=== PATIENT | male | born 1960 | race Caucasian/White ===

== ENCOUNTER 2021-09-18 01:18 | Inpatient (IN) ==
[2021-09-18 01:54] LABS: Basophils # 0.1 10*3/uL (0.0-0.2); Basophils % 0.5 % (0.0-0.8); Eosinophils # 0.1 10*3/uL (0.0-0.87); Eosinophils % 0.9 % (0.00-10.9); Hematocrit 35.5 VOL% (42.0-52.0); Hemoglobin 11.4 GM/DL (14.0-18.0); Immature Granulocytes % 0.2 %; Immature Granulocytes Absolute 0.02 #; Lymphocytes # 1.8 10*3/uL (1.4-4.0); Lymphocytes % 18.4 % (21.2-54.2); Mean Corpuscular HGB Conc 32.1 GM/DL (32-36); Mean Corpuscular Volume 94.7 FL (87-102); Mean Platelet Volume 10.7 FL (9.6-12.0); Monocytes % 9.4 % (1.7-12.7); Neutrophils % 70.6 % (38.7-73.9); Platelet Count 231 T/CUMM (130-400); Red Blood Count 3.75 MC/CUMM (3.8-5.5); Red Cell Distribution Width 13.7 % (9.3-17.3); White Blood Count 9.7 T/CUMM (4-12)
[2021-09-18 03:09] LABS: Alanine Aminotransferase 38 U/L (16-61); Albumin 3.3 G/DL (3.4-5.0); Alkaline Phosphatase 57 U/L (45-117); Aspartate Amino Transferase 36 U/L (0-37); Bilirubin,Total < 0.39 MG/DL (0.20-1.00); Blood Urea Nitrogen 33 MG/DL (7-18); Calcium 8.1 MG/DL (8.5-10.1); Carbon Dioxide 24 MMOL/L (21-32); Estimated Glom Filtration Rate 95 ML/MIN; Glucose 86 MG/DL (74-106); Osmolality,Calculated 286.3 MOS/KG (273-304); Potassium 3.9 MMOL/L (3.5-5.1); Sodium 141 MMOL/L (136-145); Total Protein 5.8 G/DL (6.4-8.2)
[2021-09-18] MEDS ORDERED: DILTIAZEM 50 MG/10 ML VIAL IV STA (03:12)
[2021-09-18] MEDS ORDERED: hydrALAZINE 20 MG/1 ML VIAL IV PRN (04:18)
[2021-09-18] MEDS ORDERED: ACETAMINOPHEN 325 MG TABLET PO PRN (04:18)
[2021-09-18] MEDS ORDERED: ONDANSETRON 4 MG/2 ML VIAL IV PRN (04:18)
[2021-09-18] MEDS ORDERED: GLUCAGON 1 MG VIAL IM PRN (04:18)
[2021-09-18] MEDS ORDERED: DEXTROSE 10% 250 ML BAG IV PRN (04:34)
[2021-09-18] MEDS ORDERED: METOPROLOL TARTRATE 5 MG/5 ML VIAL IV STA (04:46)
[2021-09-18 04:52] LABS: Risk Ratio 2.43; Thyroid Stimulating Hormone 0.936 uIU/ml (0.358-3.74)
[2021-09-18 05:19] LABS: PT Patient Result 10.7 SECS (10.5-12.0)
[2021-09-18] MEDS ORDERED: FUROSEMIDE 40 MG/4 ML VIAL IV ONE (05:44)
[2021-09-18] MEDS ORDERED: VERAPAMIL SR 180 MG TABLET PO SCH (09:00)
[2021-09-18] MEDS ORDERED: METOPROLOL TARTRATE 25 MG TABLET PO SCH (09:00)
[2021-09-18] MEDS ORDERED: LOSARTAN 50 MG TABLET PO SCH (09:00)
[2021-09-18] MEDS: hydrALAZINE 25 MG TABLET PO SCH ×3 (09:19→21:27)
[2021-09-18] MEDS: COENZYME Q10 100 MG CAPSULE PO SCH (09:19)
[2021-09-18] MEDS: THIAMINE 100 MG TABLET PO SCH (09:19)
[2021-09-18] MEDS: BACLOFEN 10 MG TABLET PO SCH (09:19)
[2021-09-18] MEDS: OMEGA 3 ACID ETHYL ESTERS 1 GM CAPSULE PO SCH ×2 (09:19→21:22)
[2021-09-18] MEDS: PANTOPRAZOLE 40 MG TABLET PO SCH (09:19)
[2021-09-18] MEDS: CHOLECALCIFEROL 1,000 UNIT TABLET PO SCH (09:20)
[2021-09-18] MEDS: hydrOXYzine HCL 25 MG TABLET PO SCH (09:20)
[2021-09-18] MEDS: MAGNESIUM OXIDE 400 MG TABLET PO SCH (09:20)
[2021-09-18] MEDS: NAPROXEN 500 MG TABLET PO SCH ×2 (09:20→21:22)
[2021-09-18] MEDS: APIXABAN 5 MG TABLET PO SCH ×2 (09:20→21:22)
[2021-09-18] MEDS: ZINC GLUCONATE 50 MG TABLET PO SCH (09:20)
[2021-09-18] MEDS: CETIRIZINE 10 MG TABLET PO SCH (09:22)
[2021-09-18] MEDS: FLUTICASONE/SALMETEROL 500-50 DISKUS 14 DOSE INH SCH (10:04)
[2021-09-18] MEDS: GABAPENTIN 300 MG PO SCH (10:04)
[2021-09-18] MEDS ORDERED: SODIUM CHLORIDE 0.9% 1,000 ML IV ONE (17:01)
[2021-09-18] MEDS ORDERED: ATROPINE 1 MG/10 ML SYRINGE IV ONE (17:39)
[2021-09-18] MEDS ORDERED: ATROPINE 1 MG/10 ML SYRINGE ONE (17:39)
[2021-09-18] MEDS ORDERED: EPINEPHrine 1 MG/10 ML SYRINGE ONE (17:43)
[2021-09-18] MEDS ORDERED: EPINEPHrine 1 MG/10 ML SYRINGE IV ONE (17:54)
[2021-09-18] MEDS: SODIUM CHLORIDE 0.9% 1,000 ML IV SCH (17:55)
[2021-09-18] MEDS ORDERED: SOTALOL 80 MG TABLET PO SCH (21:00)
[2021-09-18] MEDS ORDERED: METOPROLOL TARTRATE 50 MG TABLET PO SCH (21:00)
[2021-09-18] MEDS: ASCORBIC ACID 500 MG TABLET PO SCH (21:22)
[2021-09-18] MEDS: SOTALOL 80 MG TABLET PO SCH (21:27)
[2021-09-18] MEDS: VERAPAMIL SR 180 MG TABLET PO SCH (21:27)
[2021-09-18] MEDS: LOSARTAN 50 MG TABLET PO SCH (21:27)
[2021-09-18 21:52] LABS: Bacteria,Urine Occasional /HPF (Few); Hyaline Casts,Urine 16 /LPF (0-3); Mucus,Urine Many /LPF (Occasional); RBC,Urine 1 /HPF (0-4); Squamous Epithelial Cell,Urine Occasional /HPF (0-10)
[2021-09-18 21:53] LABS: Bilirubin,Urine Small mg/dL (Negative); Glucose,Urine (UA) Negative (Negative); Ketones,Urine 15 mg/dL (Negative); Nitrite,Urine Negative (Negative); Protein,Urine 100 mg/dL (Negative); Urine Appearance Clear (Clear); Urine Color Yellow (Yellow); Urine Specific Gravity > 1.030 (1.001-1.035); Urine pH 5.5 (4.5-8.0)
[2021-09-18 21:54] LABS: Blood, Urine Negative (Negative); Urine Urobilinogen 0.2 eU/dL (<2.0)
[2021-09-19] MEDS: SODIUM CHLORIDE 0.9% 1,000 ML IV SCH ×5 (01:34→16:13)
[2021-09-19 05:22] LABS: Basophils % 0.4 % (0.0-0.8); Eosinophils # 0.1 10*3/uL (0.0-0.87); Eosinophils % 1.1 % (0.00-10.9); Hemoglobin 10.3 GM/DL (14.0-18.0); Immature Granulocytes % 0.5 %; Immature Granulocytes Absolute 0.04 #; Lymphocytes # 1.4 10*3/uL (1.4-4.0); Lymphocytes % 16.7 % (21.2-54.2); Mean Corpuscular HGB Conc 32.2 GM/DL (32-36); Mean Corpuscular Volume 95.2 FL (87-102); Mean Platelet Volume 10.9 FL (9.6-12.0); Monocytes % 7.9 % (1.7-12.7); Neutrophils % 73.4 % (38.7-73.9); Platelet Count 168 T/CUMM (130-400); Red Blood Count 3.36 MC/CUMM (3.8-5.5); Red Cell Distribution Width 14.1 % (9.3-17.3); White Blood Count 8.2 T/CUMM (4-12)
[2021-09-19 05:39] LABS: Calcium 7.9 MG/DL (8.5-10.1); Osmolality,Calculated 291.1 MOS/KG (273-304); Potassium 4.5 MMOL/L (3.5-5.1)
[2021-09-19] MEDS ORDERED: ceFAZolin 1,000 MG VIAL IRRIG ONE (08:22)
[2021-09-19] MEDS: FLUTICASONE/SALMETEROL 500-50 DISKUS 14 DOSE INH SCH (08:40)
[2021-09-19] MEDS: hydrOXYzine HCL 25 MG TABLET PO SCH (09:18)
[2021-09-19] MEDS: LOSARTAN 50 MG TABLET PO SCH (09:18)
[2021-09-19] MEDS: PANTOPRAZOLE 40 MG TABLET PO SCH (09:18)
[2021-09-19] MEDS: hydrALAZINE 25 MG TABLET PO SCH ×3 (09:18→21:03)
[2021-09-19] MEDS: COENZYME Q10 100 MG CAPSULE PO SCH (10:48)
[2021-09-19] MEDS: GABAPENTIN 300 MG PO SCH (10:48)
[2021-09-19] MEDS: CHOLECALCIFEROL 1,000 UNIT TABLET PO SCH (10:49)
[2021-09-19] MEDS: ASCORBIC ACID 500 MG TABLET PO SCH ×2 (10:49→21:03)
[2021-09-19] MEDS: NAPROXEN 500 MG TABLET PO SCH ×2 (10:49→21:02)
[2021-09-19] MEDS: THIAMINE 100 MG TABLET PO SCH (10:49)
[2021-09-19] MEDS: MAGNESIUM OXIDE 400 MG TABLET PO SCH (10:49)
[2021-09-19] MEDS: OMEGA 3 ACID ETHYL ESTERS 1 GM CAPSULE PO SCH ×2 (10:49→21:03)
[2021-09-19] MEDS: BACLOFEN 10 MG TABLET PO SCH (10:49)
[2021-09-19] MEDS: CETIRIZINE 10 MG TABLET PO SCH (10:50)
[2021-09-19] MEDS: ZINC GLUCONATE 50 MG TABLET PO SCH (10:50)
[2021-09-19] MEDS ORDERED: DIAZEPAM 5 MG TABLET PO ONE (15:00)
[2021-09-19] MEDS ORDERED: diphenhydrAMINE CAP 25 MG CAPSULE PO ONE (15:00)
[2021-09-19] MEDS ORDERED: BISACODYL 5 MG TABLET ONE (15:06)
[2021-09-19] MEDS ORDERED: MIDAZOLAM 2 MG/2 ML VIAL ONE ×3 (16:46→17:44)
[2021-09-19] MEDS ORDERED: HEPARIN/NACL 0.9% 2 UNITS/ML 1,000 UNIT/500 ML BAG IV ONE (16:46)
[2021-09-19] MEDS ORDERED: fentaNYL 100 MCG/2 ML VIAL ONE (16:46)
[2021-09-19] MEDS ORDERED: HYDROmorphone 1 MG/1 ML SYRINGE ONE (17:02)
[2021-09-19] MEDS ORDERED: ceFAZolin 1,000 MG VIAL ONE ×2 (17:04→17:05)
[2021-09-19] MEDS ORDERED: diphenhydrAMINE 50 MG/1 ML VIAL ONE (17:09)
[2021-09-19] MEDS ORDERED: TISSUE ADHESIVE 1 EACH APPLICATOR TOP ONE (17:14)
[2021-09-19] MEDS ORDERED: LIDOCAINE 1% 20 ML VIAL ONE (17:45)
[2021-09-19] MEDS: SOTALOL 80 MG TABLET PO SCH (21:03)
[2021-09-20 04:59] LABS: Basophils % 0.3 % (0.0-0.8); Eosinophils # 0.1 10*3/uL (0.0-0.87); Eosinophils % 1.2 % (0.00-10.9); Hemoglobin 10.4 GM/DL (14.0-18.0); Immature Granulocytes % 0.4 %; Immature Granulocytes Absolute 0.03 #; Lymphocytes # 1.4 10*3/uL (1.4-4.0); Lymphocytes % 18.9 % (21.2-54.2); Mean Corpuscular HGB Conc 32.5 GM/DL (32-36); Mean Corpuscular Volume 94.1 FL (87-102); Mean Platelet Volume 10.3 FL (9.6-12.0); Monocytes % 9.8 % (1.7-12.7); Neutrophils % 69.4 % (38.7-73.9); Platelet Count 165 T/CUMM (130-400); Red Cell Distribution Width 13.7 % (9.3-17.3); White Blood Count 7.2 T/CUMM (4-12)
[2021-09-20 05:17] LABS: Potassium 4.2 MMOL/L (3.5-5.1)
[2021-09-20] MEDS: VERAPAMIL SR 180 MG TABLET PO SCH (08:51)
[2021-09-20] MEDS: NAPROXEN 500 MG TABLET PO SCH ×2 (08:52→20:41)
[2021-09-20] MEDS: OMEGA 3 ACID ETHYL ESTERS 1 GM CAPSULE PO SCH ×2 (08:52→20:41)
[2021-09-20] MEDS: BACLOFEN 10 MG TABLET PO SCH (08:52)
[2021-09-20] MEDS: hydrALAZINE 25 MG TABLET PO SCH ×3 (08:52→20:41)
[2021-09-20] MEDS: hydrOXYzine HCL 25 MG TABLET PO SCH (08:52)
[2021-09-20] MEDS: LOSARTAN 50 MG TABLET PO SCH (08:52)
[2021-09-20] MEDS: SOTALOL 80 MG TABLET PO SCH ×2 (08:53→20:41)
[2021-09-20] MEDS: ASCORBIC ACID 500 MG TABLET PO SCH ×2 (08:53→20:41)
[2021-09-20] MEDS: COENZYME Q10 100 MG CAPSULE PO SCH (08:53)
[2021-09-20] MEDS: CHOLECALCIFEROL 1,000 UNIT TABLET PO SCH (08:53)
[2021-09-20] MEDS: THIAMINE 100 MG TABLET PO SCH (08:53)
[2021-09-20] MEDS: MAGNESIUM OXIDE 400 MG TABLET PO SCH (08:53)
[2021-09-20] MEDS: PANTOPRAZOLE 40 MG TABLET PO SCH (08:53)
[2021-09-20] MEDS: CETIRIZINE 10 MG TABLET PO SCH (08:53)
[2021-09-20] MEDS: ZINC GLUCONATE 50 MG TABLET PO SCH (08:53)
[2021-09-20] MEDS: FLUTICASONE/SALMETEROL 500-50 DISKUS 14 DOSE INH SCH (08:56)
[2021-09-20] MEDS: GABAPENTIN 300 MG PO SCH (09:18)
[2021-09-20] MEDS: APIXABAN 5 MG TABLET PO SCH (10:06)
[2021-09-21 06:20] LABS: Basophils % 0.3 % (0.0-0.8); Eosinophils # 0.1 10*3/uL (0.0-0.87); Eosinophils % 1.7 % (0.00-10.9); Hematocrit 32.5 VOL% (42.0-52.0); Hemoglobin 10.5 GM/DL (14.0-18.0); Immature Granulocytes % 0.5 %; Immature Granulocytes Absolute 0.03 #; Lymphocytes # 1.4 10*3/uL (1.4-4.0); Lymphocytes % 21.6 % (21.2-54.2); Mean Corpuscular HGB Conc 32.3 GM/DL (32-36); Mean Corpuscular Volume 96.2 FL (87-102); Mean Platelet Volume 11.3 FL (9.6-12.0); Monocytes % 9.5 % (1.7-12.7); Neutrophils % 66.4 % (38.7-73.9); Platelet Count 160 T/CUMM (130-400); Red Blood Count 3.38 MC/CUMM (3.8-5.5); Red Cell Distribution Width 13.4 % (9.3-17.3); White Blood Count 6.3 T/CUMM (4-12)
[2021-09-21 06:37] LABS: Calcium 8.4 MG/DL (8.5-10.1); Osmolality,Calculated 287.8 MOS/KG (273-304)
[2021-09-21] MEDS ORDERED: FLUTICASONE 50 MCG NASAL SPRAY 16 GM BOTTLE BOTH NARES SCH (09:00)
[2021-09-21] MEDS: ASCORBIC ACID 500 MG TABLET PO SCH (09:24)
[2021-09-21] MEDS: CETIRIZINE 10 MG TABLET PO SCH (09:24)
[2021-09-21] MEDS: CHOLECALCIFEROL 1,000 UNIT TABLET PO SCH (09:24)
[2021-09-21] MEDS: hydrALAZINE 25 MG TABLET PO SCH (09:24)
[2021-09-21] MEDS: OMEGA 3 ACID ETHYL ESTERS 1 GM CAPSULE PO SCH (09:24)
[2021-09-21] MEDS: PANTOPRAZOLE 40 MG TABLET PO SCH (09:24)
[2021-09-21] MEDS: COENZYME Q10 100 MG CAPSULE PO SCH (09:25)
[2021-09-21] MEDS: NAPROXEN 500 MG TABLET PO SCH (09:25)
[2021-09-21] MEDS: VERAPAMIL SR 180 MG TABLET PO SCH (09:26)
[2021-09-21] MEDS: ZINC GLUCONATE 50 MG TABLET PO SCH (09:26)
[2021-09-21] MEDS: LOSARTAN 50 MG TABLET PO SCH (09:26)
[2021-09-21] MEDS: SOTALOL 80 MG TABLET PO SCH (09:26)
[2021-09-21] MEDS: MAGNESIUM OXIDE 400 MG TABLET PO SCH (09:26)
[2021-09-21] MEDS: THIAMINE 100 MG TABLET PO SCH (09:26)
[2021-09-21] MEDS: BACLOFEN 10 MG TABLET PO SCH (09:27)
[2021-09-21] MEDS: hydrOXYzine HCL 25 MG TABLET PO SCH (09:27)
[2021-09-21] MEDS: FLUTICASONE/SALMETEROL 500-50 DISKUS 14 DOSE INH SCH (11:05)
[2021-09-21] MEDS: GABAPENTIN 300 MG PO SCH (11:06)
[2021-09-21 12:10] VITALS: BP 143/87
== END 2021-09-21 12:19 | disposition home or self-care (01) | DRG 244 ==
LOC: N.ED 01:18 → N.EDINP 01:18 → SUATTDRO 04:18 → N.TELEN 06:28
PROVIDERS: ADMIT Internal Medicine; ATTEND Internal Medicine Geriatric Medicine